=== PATIENT | male | born 1970 | race American Indian/Alaskan Native ===

== ENCOUNTER 2017-08-03 12:51 | Emergency (ER) | payer SELFPAY ==
[2017-08-03 14:12] LABS: Basophils % (Auto) 1.3 % (0.0-1.8); Eosinophils % (Auto) 1.3 % (0.0-4.3); Hematocrit 42.3 % (35.5-45.6); Hemoglobin 14.5 gm/dl (11.8-15.2); Mean Corpuscular HGB Conc 34 % (32-34); Mean Corpuscular Hemoglobin 31 pg (28-32); Mean Corpuscular Volume 90 fl (84-94); Platelet Count 208 K/mm3 (140-440); Red Blood Count 4.68 M/mm3 (3.65-5.03); Red Cell Distribution Width 14.2 % (13.2-15.2); White Blood Count 7.4 K/mm3 (4.5-11.0)
[2017-08-03 14:30] LABS: Anion Gap 18 mmol/L; Blood Urea Nitrogen 10 mg/dL (9-20); Calcium 8.9 mg/dL (8.4-10.2); Carbon Dioxide 26 mmol/L (22-30); Chloride 104.2 mmol/L (98-107); Glucose 79 mg/dL (75-100); Potassium 3.5 mmol/L (3.6-5.0); Sodium 145 mmol/L (137-145)
--- NOTE | 2017-08-03 15:54 | XRay Report ---
Single view chest: History: Chest pain. Findings: Normal cardiomediastinal silhouette. Trachea is midline. No consolidation, pneumothorax or pleural effusion. Impression: No acute cardiopulmonary findings.
--- NOTE | 2017-08-03 16:30 | Emergency Department Report ---
ED General Adult HPI - General Chief complaint: Chest Pain Stated complaint: CHEST PAIN,NOSE BLEEDING Time Seen by Provider: 08/03/17 15:09 Source: patient Mode of arrival: Ambulatory Limitations: No Limitations - History of Present Illness Initial comments: The patient actually gives a long (1 week) history of illness. He states he felt like he had a cold on Sunday. Then he felt malaise Sunday and Sunday. Took 2 Sunday and Sunday off from work. On at work he coughed and then vomited. He had no signs of GI bleeding. He did not complain of any abdominal pain. Patient tells me he had chest pain for a few seconds yesterday and today which was associated with cough. He had no pleuritic pain. He was not short of breath. He is actually asymptomatic at this time. After this week of illness he thought he should be checked out in general. The patient admits marijuana and tobacco. Is a negative family history for myocardial infarction. He denies cocaine use. -: minutes(s) (actually seconds associated with cough) Location: chest Radiation: non-radiation Quality: dull Consistency: intermittent (2 episodes), now resolved Improves with: none Worsens with: none Associated Symptoms: denies other symptoms, cough Treatments Prior to Arrival: none - Related Data Allergies Allergy/AdvReac Type Severity Reaction Status Date / Time No Known Allergies Allergy Unverified 08/03/17 13:23 ED Review of Systems ROS: Stated complaint: CHEST PAIN,NOSE BLEEDING Other details as noted in HPI Constitutional: denies: chills, fever Eyes: denies: eye pain, eye discharge, vision change ENT: denies: ear pain, throat pain Respiratory: cough (nonproductive). denies: shortness of breath, wheezing Cardiovascular: chest pain. denies: palpitations Endocrine: no symptoms reported Gastrointestinal: denies: abdominal pain, nausea, diarrhea Genitourinary: denies: urgency, dysuria Musculoskeletal: denies: back pain, joint swelling, arthralgia Skin: denies: rash, lesions Neurological: denies: headache, weakness, paresthesias Psychiatric: denies: anxiety, depression Hematological/Lymphatic: denies: easy bleeding, easy bruising ED Past Medical Hx - Past Medical History Previous Medical History?: Yes Hx Asthma: Yes - Surgical History Past Surgical History?: Yes Additional Surgical History: club feet surgery at 8 yrs old - Social History Smoking Status: Current Some Day Smoker Substance Use Type: Alcohol, Marijuana ED Physical Exam - General Limitations: No Limitations General appearance: alert, in no apparent distress - Head Head exam: Present: atraumatic, normocephalic - Eye Eye exam: Present: normal appearance, PERRL, EOMI. Absent: scleral icterus - ENT ENT exam: Present: mucous membranes moist - Neck Neck exam: Present: normal inspection - Respiratory Respiratory exam: Present: normal lung sounds bilaterally. Absent: respiratory distress - Cardiovascular Cardiovascular Exam: Present: regular rate, normal rhythm. Absent: systolic murmur, diastolic murmur, rubs, gallop - GI/Abdominal GI/Abdominal exam: Present: soft, normal bowel sounds. Absent: distended, tenderness, guarding, rebound, rigid - Rectal Rectal exam: Present: deferred - Extremities Exam Extremities exam: Present: normal inspection - Back Exam Back exam: Present: normal inspection - Neurological Exam Neurological exam: Present: alert, oriented X3, CN II-XII intact. Absent: motor sensory deficit - Psychiatric Psychiatric exam: Present: normal affect, normal mood - Skin Skin exam: Present: warm, dry, intact, normal color. Absent: rash - Other Other exam information: Peripheral pulses are 2+ upper and lower extremities and symmetrical ED Course Vital Signs 08/03/17 08/03/17 08/03/17 13:08 14:20 14:31 Temperature 99.6 F Pulse Rate 81 70 59 L Respiratory 18 9 L 13 Rate Blood Pressure 134/81 112/68 Blood Pressure [Left] O2 Sat by Pulse 98 Oximetry 08/03/17 08/03/17 08/03/17 14:35 14:45 15:01 Temperature 98.4 F Pulse Rate 62 57 L 55 L Respiratory 14 10 L 15 Rate Blood Pressure 117/76 109/66 Blood Pressure 124/77 [Left] O2 Sat by Pulse 98 Oximetry - Reevaluation(s) Reevaluation #1: Patient remained asymptomatic here. He stated that he did not want stay overnight for further heart evaluation. I do not feel there is a strong indication for it anyway. He is referred to his primary care provider. However , he is directed to return for hospitalization should he have any recurrent chest pain. 08/03/17 16:29 ED Medical Decision Making - Lab Data Result diagrams: 08/03/17 13:57 08/03/17 13:57 - EKG Data -: EKG Interpreted by Me EKG shows normal: sinus rhythm, axis, intervals, QRS complexes, ST-T waves Rate: normal - EKG Data Interpretation: normal EKG - Radiology Data Radiology results: report reviewed interpreted by me: No acute process Critical care attestation.: If time is entered above; I have spent that time in minutes in the direct care of this critically ill patient, excluding procedure time. ED Disposition Clinical Impression: Viral illness, Atypical chest pain Disposition: DC-01 TO HOME OR SELFCARE Is pt being admited?: No Does the pt Need Aspirin: No Condition: Stable Instructions: Chest Pain (ED), Viral Syndrome (ED) Additional Instructions: Any further chest pain for continued evaluation. Follow-up through primary care physician tomorrow. Referrals: PRIMARY CARE, [Primary Care Provider] - 24 Hours Time of Disposition: 16:32
[2017-08-03 16:54] VITALS: BP 136/77
== END 2017-08-03 16:59 | disposition home or self-care (01) ==
LOC: ED 12:51
DX: B34.9 Viral infection, unspecified (principal); R07.89 Other chest pain; J45.909 Unspecified asthma, uncomplicated; F17.200 Nicotine dependence, unspecified, uncomplicated; F12.10 Cannabis abuse, uncomplicated
CPT/HCPCS: 36415; 71010; 80048; 82550; 82553; 84484; 85025; 93005; 93010

== ENCOUNTER 2017-11-27 08:32 | Emergency (ER) | payer SELFPAY ==
[2017-11-27] MEDS ORDERED: MOTRIN ONE (09:38)
[2017-11-27] MEDS ORDERED: MOTRIN PO ONE (09:39)
[2017-11-27] MEDS ORDERED: TYLENOL ONE (11:34)
[2017-11-27] MEDS ORDERED: TYLENOL PO ONE (11:37)
--- NOTE | 2017-11-27 12:50 | Emergency Department Report ---
ED Upper Extremity Inj HPI - General Chief Complaint: Extremity Injury, Upper Stated Complaint: RIGHT HAND FINGER PAIN Time Seen by Provider: 11/27/17 12:45 Source: patient Mode of arrival: Ambulatory Limitations: No Limitations - History of Present Illness Initial Comments: PT with R ring finger injury 1 month ago. PT states he was playing basketball, he was passed the ball and his finger extended backwards. PT wears a silver colored ring on his finger and has not been able to remove due to the swelling. Complaint: Injury to:: right, finger (ring) -: Sudden Other Extremity Injury: Fingers: Right Other Injuries: none Severity scale (0 -10): 10 Improves With: none Worsens With: movement of extremity Associated Symptoms: denies other symptoms Treatments Prior to Arrival: cold therapy - Related Data Previous Rx's Medication Instructions Recorded Last Taken Type Ibuprofen [Motrin] 600 mg PO Q8H PRN #15 tablet 11/27/17 Unknown Rx Allergies Allergy/AdvReac Type Severity Reaction Status Date / Time No Known Allergies Allergy Verified 11/27/17 09:45 ED Review of Systems ROS: Stated complaint: RIGHT HAND FINGER PAIN Other details as noted in HPI Comment: All other systems reviewed and negative Constitutional: denies: chills, fever Cardiovascular: denies: chest pain Gastrointestinal: denies: abdominal pain Neurological: denies: headache ED Past Medical Hx - Past Medical History Hx Asthma: Yes - Surgical History Additional Surgical History: club feet surgery at 8 yrs old - Social History Smoking Status: Current Every Day Smoker Substance Use Type: Alcohol - Medications Home Medications: Home Medications Medication Instructions Recorded Confirmed Last Taken Type Ibuprofen [Motrin] 600 mg PO Q8H PRN #15 tablet 11/27/17 Unknown Rx ED Physical Exam - General Limitations: No Limitations General appearance: alert, in no apparent distress - Head Head exam: Present: atraumatic, normocephalic, normal inspection - Eye Eye exam: Present: normal appearance. Absent: conjunctival injection - ENT ENT exam: Present: normal exam, mucous membranes moist - Neck Neck exam: Present: normal inspection, full ROM - Respiratory Respiratory exam: Absent: respiratory distress, accessory muscle use - Cardiovascular Cardiovascular Exam: Present: regular rate, normal rhythm - Extremities Exam Extremities exam: Present: tenderness - Expanded Upper Extremity Exam Left General: Present: normal inspection Right Hand Wrist exam: Present: tenderness, swelling (to R ring finger at PIP ). Absent: full ROM Vascular: Present: normal capillary refill, radial pulse. Absent: vascular compromise - Back Exam Back exam: Present: normal inspection, full ROM - Neurological Exam Neurological exam: Present: alert, oriented X3 - Psychiatric Psychiatric exam: Present: normal affect, normal mood - Skin Skin exam: Present: warm, dry, intact ED Course Vital Signs 11/27/17 09:26 Temperature 99.1 F Pulse Rate 69 Respiratory 20 Rate Blood Pressure 118/71 O2 Sat by Pulse 99 Oximetry - Reevaluation(s) Reevaluation #1: 11/27/17 12:53 PT gave verbal consent for ring removal. 11/27/17 13:00 attempted ring removal with metal hand held device. No success, also attempted ring removal with string technique, also not successful. Will call OR to see what other tools area available. Per charge nurse, no blade for electric ring removal. Reevaluation #2: 11/27/17 16:53 Unable to remove ring with available ring remover. Attempted multiple times, however, only made scratches in ring. Called OR twice for possible use of equipment, Kumar to come down and evaluate pt's ring and suggest possible tool. However, pt unable to wait. States his son's school is closing early due to weather. He states he has to leave. PT aware he will need to follow up with ring removal. PT states he has not taken NSAIDs for finger swelling, will RX Motrin and give ortho referral - Pulse Oximetry Interpretation Digit-Finger Initial Pulse Oximetry Readin Actions Taken: none ED Medical Decision Making - Radiology Data Radiology results: report reviewed - Differential Diagnosis fb, fracture, strain Critical Care Time: No Critical care attestation.: If time is entered above; I have spent that time in minutes in the direct care of this critically ill patient, excluding procedure time. ED Disposition Clinical Impression: Swelling of finger joint of right hand Disposition: DC- TO HOME OR SELFCARE Is pt being admited?: No Does the pt Need Aspirin: No Condition: Stable Instructions: Jammed Finger (ED), Finger Sprain (ED) Additional Instructions: RICE Follow up with ORTHO or PCP to have ring removed Return to ED if finger swelling worsens, your pain increases or your notice color changes to your finger Prescriptions: Ibuprofen [Motrin] 600 mg PO Q8H PRN #15 tablet PRN Reason: Pain Referrals: PHILIP LAWSON MD [Referring] - 3-5 Days PRIMARY CARE, [Primary Care Provider] - 3-5 Days ARIAN DUARTE MD [Staff Physician] - 3-5 Days Time of Disposition: 17:02
--- NOTE | 2017-11-27 16:04 | XRay Report ---
Right fourth digit: Pain, swelling. There is generalized swelling of the midportion of the fourth digit with no foreign body and no underlying bone or joint abnormality identified. Impression: Nonspecific swelling.
[2017-11-27 17:00] VITALS: BP 114/68
== END 2017-11-27 16:59 | disposition home or self-care (01) ==
LOC: ED 08:32
DX: M25.441 Effusion, right hand (principal); J45.909 Unspecified asthma, uncomplicated; F17.200 Nicotine dependence, unspecified, uncomplicated
CPT/HCPCS: 99284